=== PATIENT | female | born 1950 | race Caucasian/White ===

== ENCOUNTER 2023-07-28 09:45 | Emergency (ER) | payer SELFPAY ==
[~2023-07-28] VITALS: Ht 165.1 cm; Wt 95.3 kg
[2023-07-28 10:03] VITALS: BP 135/79; PULSE 106; RESP 18; TEMP 98.8; O2SAT 96
[2023-07-28 11:27] LABS: BASOPHILS # (AUTO) 0.1 K/uL (0.00-0.22); BASOPHILS % (AUTO) 0.7 % (0.0-2.0); EOSINOPHILS # (AUTO) 0.8 K/uL (0-0.4); EOSINOPHILS % (AUTO) 10.8 % (0.0-4.0); HEMATOCRIT 38.9 % (36-48); HEMOGLOBIN 13.3 g/dL (12.0-16.0); LYMPHOCYTES # (AUTO) 3.2 K/uL (2.5-16.5); LYMPHOCYTES % (AUTO) 42.4 % (20.5-51.1); MEAN CORPUSCULAR HEMOGLOBIN 30 pg (27-31); MEAN CORPUSCULAR HGB CONC 34 g/dL (33-37); MEAN CORPUSCULAR VOLUME 88.8 fL (80-94); MONOCYTES # (AUTO) 0.7 K/uL (0.8-1.0); MONOCYTES % (AUTO) 8.9 % (1.7-9.3); NEUTROPHILS # (AUTO) 2.8 K/uL (1.8-7.7); NEUTROPHILS % (AUTO) 37.2 % (42.2-75.2); PLATELET COUNT (AUTO) 246 K/uL (140-450); RED BLOOD CELL COUNT(AUTO) 4.38 MIL/uL (4.20-5.40); RED CELL DISTRIBUTION WIDTH 14.7 % (11.6-13.7); WHITE BLOOD COUNT (AUTO) 7.6 K/uL (4.8-10.8)
[2023-07-28] MEDS: ACETAMINOPHEN EXTRA STRENGTH 500 MG TAB PO ONE (11:28)
[2023-07-28] MEDS: LIDOCAINE 5% 1 EA PATCH TP ONE (11:30)
[2023-07-28 11:43] LABS: ANION GAP 11.1 (8-16); CALCIUM 9.3 mg/dL (8.5-10.1); CARBON DIOXIDE 31.5 mmol/L (21-32); CHLORIDE 104 mmol/L (98-107); GLUCOSE 124 mg/dL (74-106); POTASSIUM 3.6 mmol/L (3.5-5.1); SODIUM SERUM 143 mmol/L (136-145); UREA NITROGEN, BLOOD 15 mg/dL (7-18)
[2023-07-28] MEDS ORDERED: ACET-10509 PO (12:47)
[2023-07-28] MEDS ORDERED: DICL20GE TP (12:48)
[2023-07-28] MEDS ORDERED: LID5T TP (12:48)
[2023-07-28 13:11] VITALS: BP 132/82; PULSE 88; RESP 18; TEMP 98.8; O2SAT 96
== END 2023-07-28 13:11 | disposition home or self-care (01) ==
LOC: MED 09:45
DX: I50.9 Heart failure, unspecified (principal); M16.0 Bilateral primary osteoarthritis of hip; Z79.899 Other long term (current) drug therapy
CPT/HCPCS: 36415; 71045; 72170; 80048; 83880; 84484; 85025; 93005; 99285